=== PATIENT | female | born 1960 | race Caucasian/White ===

== ENCOUNTER → 2023-08-28 | Day surgery (SDC) | payer BC, MEDICARE ==
[2023-08-22 14:10] LABS: BASOPHILS % 0.4 % (0.0-1.0); EOSINOPHILS % 0.4 % (0.0-6.0); HEMATOCRIT 38.6 % (34.2-44.1); HEMOGLOBIN 12.9 g/dL (12.0-16.0); LYMPHOCYTES # (AUTO) 1.2 (1.0-3.2); LYMPHOCYTES % 25.4 % (18.0-39.1); MEAN CORPUSCULAR HEMOGLOBIN 30.4 pg (28-32); MEAN CORPUSCULAR HGB CONC 33.4 g/dL (31-35); MEAN CORPUSCULAR VOLUME 90.8 fL (81-99); MONOCYTES # (AUTO) 0.4 (0.2-0.8); MONOCYTES % 7.6 % (4.4-11.3); PLATELET COUNT 144 x10e3/uL (140-360); RED BLOOD COUNT 4.25 x10e6/uL (3.6-5.1); RED CELL DISTRIBUTION WIDTH 14.5 % (11.7-14.4); WHITE BLOOD COUNT 4.61 x10e3/uL (4.8-10.8)
[~2023-08-28] MED LIST: ASPIRIN81 MG PO; ATORVASTATIN CA20 MG PO; CLONAZEPAM1 MG PO; COQ-10100 MG PO; CYMBALTA30 MG PO; DEXILANT60 MG PO; DICYCLOMINE HCL20 MG PO; ENBREL25 MG/0.5 INJ; ESCITALOPRAM OX20 MG PO; FENTANYL CITRATE/PF 100MCG/2 ML INJ ONE; FUROSEMIDE40 MG PO; GABAPENTIN300 MG PO; HYDROCODONE-AP1 EAC1 PO; KRILL OIL PO; LACTATED RINGER'S 1,000 ML ONE; LIPITOR10 MG PO; LOSARTAN POTASS25 MG PO; LYRICA75 MG PO; Linzess PO; METFORMIN HCL500 M2 PO; MIDAZOLAM HCL 2 MG/2 ML VIAL ONE; MULTI-VITAMIN1 EACH PO; NODOLOR CAPSUL1 EACH PO; OMEPRAZOLE40 MG PO; ORENCIA 250 MG250 MG IV; PANTOPRAZOLE SO40 MG PO; PAROXETINE HCL40 MG PO; PHENERGAN PO; PLAVIX75 MG PO; PREDNISONE10 MG PO; PROMETHAZINE HC25 M1 PO; PROPOFOL IV EMULSION 10 MG/ML 50 ML VIAL IV ONE; QUETIAPINE FUM100 MG PO; RECLAST 55 MG/100 M; SAVELLA50 MG PO; SEROQUEL XR50 MG PO; TEMAZEPAM30 MG PO; TIZANIDINE HCL4 M1 PO; TOPROL XL25 MG PO; TRELEGY ELLIPT1 EACH INH; ULTRAM 50MG50 MG PO; VIT B12 PO; VIT D3 PO; Z.0.DEXILANT60 MG PO; Z.0.DICYCLOMINE HCL2 PO; Z.0.GABAPENTIN100 MG PO; Z.0.ZOFRAN4 MG PO; [UNRECOGNIZED DRUG - CODE] PO; [UNRECOGNIZED DRUG - OTHER] PO; reflux medication PO
[2023-08-28 09:19] VITALS: TEMP 97.4
[2023-08-28 09:45] VITALS: BP 131/73; PULSE 56; RESP 16; O2SAT 100
== END | disposition home or self-care (01) ==
LOC: OR 05:55
PROVIDERS: ATTEND Internal Medicine Gastroenterology
DX: K29.50 Unspecified chronic gastritis without bleeding (principal); D12.2 Benign neoplasm of ascending colon; D12.8 Benign neoplasm of rectum; K22.10 Ulcer of esophagus without bleeding; K44.9 Diaphragmatic hernia without obstruction or gangrene; K21.9 Gastro-esophageal reflux disease without esophagitis; K59.00 Constipation, unspecified; K64.8 Other hemorrhoids; E11.9 Type 2 diabetes mellitus without complications; I25.810 Atherosclerosis of coronary artery bypass graft(s) without angina pectoris; I11.0 Hypertensive heart disease with heart failure; I50.9 Heart failure, unspecified; I25.2 Old myocardial infarction; E78.5 Hyperlipidemia, unspecified; J44.9 Chronic obstructive pulmonary disease, unspecified; M06.9 Rheumatoid arthritis, unspecified; G89.29 Other chronic pain; F41.9 Anxiety disorder, unspecified; F17.210 Nicotine dependence, cigarettes, uncomplicated; Z91.041 Radiographic dye allergy status; Z01.810 Encounter for preprocedural cardiovascular examination; Z01.812 Encounter for preprocedural laboratory examination; Z79.02 Long term (current) use of antithrombotics/antiplatelets; Z79.82 Long term (current) use of aspirin; Z79.84 Long term (current) use of oral hypoglycemic drugs; Z79.899 Other long term (current) drug therapy; Z95.1 Presence of aortocoronary bypass graft
CPT/HCPCS: 36415 ×2; 43239; 43450; 45380; 45385; 82948; 85025; 88305; 88342; 93005; C9113; J2250; J2704; J3010; J7121; 45384; 88304; 88312